=== PATIENT | male | born 1980 | race Caucasian/White ===

== ENCOUNTER → 2018-12-27 14:54 | Outpatient (CLI) | payer OTHER, SELFPAY ==
[2018-12-27 16:10] LABS: Hematocrit 41.8 % (41-53); Hemoglobin 14.6 g/dL (13.5-17.5); Mean Corpuscular HGB Conc 34.9 % (30-36); Mean Corpuscular Hemoglobin 31.2 PG (26-34); Mean Corpuscular Volume 89.4 fL (80-100); Platelet Count 198 X10^3/uL (150-400); Red Blood Cell Count 4.68 X10^6/uL (4.5-5.9); Red Cell Distribution Width 12.6 % (11.6-14.8)
[2018-12-27 16:32] LABS: Alanine Aminotransferase 57 IU/L (21-72); Albumin 4.7 g/dL (3.5-5.0); Albumin Globulin Ratio 1.4 (1.0-2.8); Alkaline Phosphatase 60 U/L (38-126); Aspartate Aminotransferase 38 IU/L (17-59); BUN Creatinine Ratio 17.5 (6-22); Bilirubin Total 0.7 mg/dL (0.2-1.3); Blood Urea Nitrogen 14 mg/dL (9-20); Calcium 9.2 mg/dL (8.4-10.2); Carbon Dioxide 27 mmol/L (22-32); Chloride 101 mmol/L (98-107); Estimated Glomerular Filt Rate > 60.0 mL/min (>60); Globulin 3.3 g/dL (1.7-4.1); Glucose 91 mg/dL (70-100); HEMOLYSIS < 15 (0-50); Lipase 65 U/L (23-300); Potassium 3.9 mmol/L (3.4-5.1); Sodium 139 mmol/L (137-145)
[2018-12-27 16:40] LABS: Neutrophils Absolute Manual 2880 /uL (3000-5900); Total Cells Counted 100
[2018-12-27 16:41] LABS: RBC Morphology Normal Morphology
== END ==
PROVIDERS: Visit Provider Physician Assistant
DX: R10.9 Unspecified abdominal pain (principal)
CPT/HCPCS: 36415; 80053; 83690; 85025

== ENCOUNTER 2018-12-27 17:26 | Emergency (ER) | payer OTHER, SELFPAY ==
[2018-12-27 18:05] VITALS: BP 139/82; PULSE 85; RESP 14; TEMP 36.8; O2SAT 98
--- NOTE | 2018-12-27 18:19 | DI.CT.S_ITS ---
PROCEDURE: CT ABDOMEN PELVIS W CON INDICATIONS: LUQ pain, severe, sent by [facility] TECHNIQUE: After the administration of intravenous contrast, 5 mm thick sections acquired from the diaphragm to the symphysis. 5 mm coronal and sagittal reformats were acquired. For radiation dose reduction, the following was used: automated exposure control, adjustment of mA and/or kV according to patient size. COMPARISON: None. FINDINGS: Image quality: Excellent. ABDOMEN: Lung bases: Lung bases are clear. Heart size is normal. Solid organs: There is diffuse hepatic steatosis. Gallbladder is unremarkable. Biliary system is non dilated. Pancreas enhances normally. Spleen is normal in size and enhancement. No adrenal nodules. Kidneys demonstrate normal size and enhancement, without hydronephrosis. There is a prominent left extrarenal pelvis versus parapelvic cyst. Peritoneum and bowel: Bowel loops demonstrate normal wall thickness and caliber. No free fluid or air. Normal appendix seen on axial image 57 of series 2. There is a 3.0 cm area of omental fat in the lateral left paracolic gutter demonstrating peripheral fat stranding consistent with edema. There is thickening of the peritoneal lining along the left paracolic bladder and there is mild thickening of the left descending colon. Nodes and vessels: No retroperitoneal or mesenteric adenopathy by size criteria. Aorta and inferior vena cava are normal in size. PELVIS: Genitourinary: Bladder wall thickness is normal. Bones: No suspicious bony lesions. No vertebral body compression fractures. IMPRESSION: 1. Inflammatory findings along the left paracolic gutter including focal inflammation surrounding a 3.0 cm of intraperitoneal fat, most consistent with an intraperitoneal focal fat infarction or epiploic appendigitis. A left descending colitis could appear similar. Consider followup CT to demonstrate resolution of findings after the clinical episode resolves to exclude a colonic or mesenteric lesion. 2. Hepatic steatosis. Findings discussed with referring provider Dr. Trace Hughes by telephone by Dr. Shelton at 8:40 PM on 12/27/18. Dictated by: Louis Shelton M.D. on 12/27/2018 at 20:33 Approved by: Louis Shelton M.D. on 12/27/2018 at 20:43
[2018-12-27 18:25] LABS: Add Manual Diff / Slide Review NO; Basophils Absolute Auto 0 /uL (0-100); Basophils Percent Auto 0.3 % (0-2); Eosinophils Absolute Auto 0 /uL (0-450); Eosinophils Percent Auto 0.7 % (2-4); Hematocrit 43.5 % (41-53); Hemoglobin 14.9 g/dL (13.5-17.5); Lymphocytes Absolute Auto 1700 /uL (1100-4500); Lymphocytes Percent Auto 29.7 % (25-40); Mean Corpuscular HGB Conc 34.2 % (30-36); Mean Corpuscular Volume 90.7 fL (80-100); Monocytes Absolute Auto 800 /uL (0-900); Monocytes Percent Auto 13.6 % (3-14); Neutrophils Absolute Auto 3300 /uL (1500-7000); Neutrophils Percent Auto 55.7 % (50-75); Platelet Count 191 X10^3/uL (150-400); Red Blood Cell Count 4.79 X10^6/uL (4.5-5.9); Red Cell Distribution Width 12.6 % (11.6-14.8); White Blood Cell Count 5.9 X10^3/uL (4.5-11.0)
[2018-12-27 18:36] LABS: Alanine Aminotransferase 51 IU/L (21-72); Albumin 4.6 g/dL (3.5-5.0); Albumin Globulin Ratio 1.4 (1.0-2.8); Alkaline Phosphatase 61 U/L (38-126); Aspartate Aminotransferase 33 IU/L (17-59); BUN Creatinine Ratio 16.3 (6-22); Bilirubin Total 0.6 mg/dL (0.2-1.3); Blood Urea Nitrogen 13 mg/dL (9-20); Calcium 9.2 mg/dL (8.4-10.2); Carbon Dioxide 27 mmol/L (22-32); Chloride 102 mmol/L (98-107); Estimated Glomerular Filt Rate > 60.0 mL/min (>60); Globulin 3.4 g/dL (1.7-4.1); Glucose 97 mg/dL (70-100); HEMOLYSIS < 15 (0-50); Lipase 57 U/L (23-300); Potassium 3.9 mmol/L (3.4-5.1); Sodium 138 mmol/L (137-145)
--- NOTE | 2018-12-27 18:37 | ED_ITS ---
HPI - Abdominal Pain General Chief Complaint: Abdominal Pain Stated Complaint: SENT BY [facility] FOR CT FOR SIDE PAIN Time Seen by Provider: 12/27/18 18:00 Source: patient Mode of arrival: ambulatory Limitations: no limitations History of Present Illness HPI narrative: 38-year-old male nonsmoker with benign medical history presents at the request of the walk-in clinic for evaluation of worsening left upper quadrant pain for the past few days. He denies nausea, vomiting or diarrhea. His pain is worse with palpation and movement. He denies any history of the same. He denies any significant alcohol history and has never had ulcers. MD complaint: abdominal pain Onset (ago): day(s) Pain Consistency: constant Location: LUQ Severity: moderate Quality: cramping and aching Radiation: none Migration to: no migration Relieving factors: nothing Exacerbating factors: nothing Associated symptoms: nausea Related Data Previous Rx's Medication Instructions Recorded hydrocodone-acetaminophen 1 tab PO Q4-6H PRN #10 tab 12/27/18 ondansetron 4 mg PO TID-QID PRN #10 tab 12/27/18 Review of Systems Constitutional Denies chills, Denies fever(s), Denies lethargy and Denies weakness Eyes Denies change in vision, Denies eye discharge, Denies irritation and Denies loss of vision ENT Ears, Nose, Mouth, and Throat: Denies change in voice, Denies neck pain and Denies sore throat Cardiovascular Denies chest pain, Denies irregular heart rhythm, Denies lightheadedness, Denies palpitations, Denies dyspnea, Denies dyspnea on exertion and Denies orthopnea Respiratory Denies cough, Denies dyspnea, Denies dyspnea on exertion and Denies wheezing Gastrointestinal Gastrointestinal: Reports abdominal pain, Denies change in bowel habits, Denies diarrhea, Reports nausea and Denies vomiting Genitourinary Denies hematuria, Denies flank pain, Denies urinary incontinence and Denies urinary urgency Musculoskeletal Denies neck pain Integumentary/Breasts Denies pruritus, Denies erythema, Denies rash and Denies wounds Neurologic Denies confusion, Denies loss of vision and Denies weakness Psychiatric Denies anxiety, Denies confusion, Denies depression, Denies homicidal ideation and Denies suicidal ideation Endocrine Denies palpitations Hematologic/Lymphatic Denies easy bruising Allergic/Immunologic Denies wheezing PFSH Social History Smoking Status: Never smoker Social History Smoking Status: Never smoker Exam Narrative Exam Narrative: GENERAL: 38-year-old male appears stated age, well nourished, seems uncomfortable but in no significant distress HEAD: Atraumatic. Normocephalic. No temporal or scalp tenderness. EYES: Pupils equal round and reactive. Extraocular motions intact. No scleral icterus. No injection or drainage. ENT: Nose without bleeding, purulent drainage or septal hematoma. Throat without erythema, tonsillar hypertrophy or exudate. Uvula midline. Airway patent. NECK: Trachea midline. No JVD or lymphadenopathy. Supple, nontender, no meningeal signs. CARDIOVASCULAR: Regular rate and rhythm without murmurs, gallops, or rubs. RESPIRATORY: Clear to auscultation. Breath sounds equal bilaterally. No wheezes, rales, or rhonchi. GASTROINTESTINAL: Abdomen soft, non-tender, nondistended. No hepato- splenomegaly, or palpable masses. No guarding. EXTREMITIES: No clubbing, cyanosis, or edema. No joint tenderness, effusion, or edema noted. BACK: Nontender without deformity or crepitance. No flank tenderness. NEURO: AOx3. SKIN: No rash or erythema. Initial Vital Signs Initial Vital Signs: Vital Signs Temperature 98.2 F 12/27/18 18:05 Pulse Rate 85 12/27/18 18:05 Respiratory Rate 14 12/27/18 18:05 Blood Pressure 139/82 12/27/18 18:05 Pulse Oximetry 98 12/27/18 18:05 Course Orders Ordered: ED Orders 12/27/18 18:08 Urinalysis and Microscopic Stat 12/27/18 18:17 Complete Blood Count AUTO DIFF Stat Comprehensive Metabolic Panel Stat Lipase Stat 12/27/18 18:19 CT abdomen pelvis w con Stat Consultations Consultation #1: Discussion with on-call general surgeon whom is happy to see the patient in the office on Tuesday, recommends pain meds and antiemetics but no antibiotics at this point in time Vital Signs - 8 hr 12/27/18 21:19 Pulse Rate 65 Respiratory Rate 16 Blood Pressure 124/65 Pulse Oximetry 98 MDM - Abdominal Pain Lab Data Result diagrams: 12/27/18 18:17 12/27/18 18:17 Lab Results 12/27/18 12/27/1812/27/19 Range/Units 18:17 18:17 18:40 WBC 5.9 (4.5-11.0) X10^3/uL RBC 4.79 (4.5-5.9) X10^6/uL Hgb 14.9 (13.5-17.5) g/dL Hct 43.5 (41-53) % MCV 90.7 (80-100) fL MCH 31.0 (26-34) PG MCHC 34.2 (30-36) % RDW 12.6 (11.6-14.8) % Plt Count 191 (150-400) X10^3/uL Neut % (Auto) 55.7 (50-75) % Lymph % (Auto) 29.7 (25-40) % Barber % (Auto) 13.6 (3-14) % Eos % (Auto) 0.7 L (2-4) % Baso % (Auto) 0.3 (0-2) % Neut # (Auto) 3300 (6073-6590) /uL Lymph # (Auto) 1700 (4794-0168) /uL Barber # (Auto) 800 (0-900) /uL Eos # (Auto) 0 (0-450) /uL Baso # (Auto) 0 (0-100) /uL Sodium 138 (137-145) mmol/L Potassium 3.9 (3.4-5.1) mmol/L Chloride 102 (98-107) mmol/L Carbon Dioxide 27 (22-32) mmol/L BUN 13 (9-20) mg/dL Creatinine 0.80 (0.66-1.25) mg/dL Estimated GFR > 60.0 (>60) mL/min BUN/Creatinine Ratio 16.3 (6-22) Glucose 97 (70-100) mg/dL Calcium 9.2 (8.4-10.2) mg/dL Total Bilirubin 0.6 (0.2-1.3) mg/dL AST 33 (17-59) IU/L ALT 51 (21-72) IU/L Alkaline Phosphatase 61 (38-126) U/L Total Protein 8.0 (6.3-8.2) g/dL Albumin 4.6 (3.5-5.0) g/dL Globulin 3.4 (1.7-4.1) g/dL Albumin/Globulin Ratio 1.4 (1.0-2.8) Lipase 57 (23-300) U/L Urine Color Yellow Urine Appearance Clear Urine pH 6.5 (4.5-8.0) Ur Specific [place] 1.025 (1.000-1.035) Urine Protein Negative (Negative) Urine Glucose (UA) Negative (Negative) g/dL Urine Ketones Negative (NEGATIVE) Urine Occult Blood Negative (Negative) Urine Nitrate Negative (Negative) Urine Bilirubin Negative (NEGATIVE) Urine Urobilinogen 0.2 (0.2) E.U./dL Ur Leukocyte Esterase Negative (NEGATIVE) Urine RBC None seen (0-5/HPF) Urine WBC None seen (0-5/HPF) Urine Bacteria None seen (None) Ur Culture Indicated? Cult not indicated Imaging Data CT scan - abdomen: Radiologist's impression: [address] [address] [address] Scan Report Signed Patient: Marcial Chapin JMR#: [id number] : 1980Acct:[id number] Age/Sex: 38 / MDate of Service: 12/27/18 Loc: ED Accession Number: [id number] Procedure: CT abdomen pelvis w con Ordering Provider: Trace Hughes D.O. PROCEDURE: CT ABDOMEN PELVIS W CON INDICATIONS: LUQ pain, severe, sent by [facility] TECHNIQUE: After the administration of intravenous contrast, 5 mm thick sections acquired from the diaphragm to the symphysis. 5 mm coronal and sagittal reformats were acquired. For radiation dose reduction, the following was used: automated exposure control, a djustment of mA and/or kV according to patient size. COMPARISON: None. FINDINGS: Image quality: Excellent. ABDOMEN: Lung bases: Lung bases are clear. Heart size is normal. Solid organs: There is diffuse hepatic steatosis. Gallbladder is unremarkable. Biliary system is non dilated. Pancreas enhances normally. Spleen is normal in size and enhancement. No adrenal nodules. Kidneys demonstrate normal size and enhancement, without hydronephrosis. There is a prominent left extrarenal pelvis versus parapelvic cyst. Peritoneum and bowel: Bowel loops demonstrate normal wall thickness and caliber. No free fluid or air. Normal appendix seen on axial image 57 of series 2. There is a 3.0 cm area of omental fat in the lateral left paracolic gutter demonstrating per ipheral fat stranding consistent with edema. There is thickening of the peritoneal lining along the left paracolic bladder and there is mild thickening of the left descending colon. Nodes and vessels: No retroperitoneal or mesenteric adenopathy by size criteria. Aorta and inferior vena cava are normal in size. PELVIS: Genitourinary: Bladder wall thickness is normal. Bones: No suspicious bony lesions. No vertebral body compression fractures. IMPRESSION: 1. Inflammatory findings along the left paracolic gutter including focal inflammation surrounding a 3.0 cm of intraperitoneal fat, most consistent with an intraperitoneal focal fat infarction or epiploic appendigitis. A left descending colitis could appear similar. Consider followup CT to demonstrate resolution of findings after the clinical episode resolves to exclude a colonic or mesenteric lesion. 2. Hepatic steatosis. Findings discussed with referring provider Dr. Trace Hughes by telephone by Dr. Shelton at 8:40 PM on 12/27/18. Dictated by: Louis Shelton M.D. on 12/27/2018 at 20:33 Approved by: Louis Shelton M.D. on 12/27/2018 at 20:43 Discharge Plan Departure Patient Disposition: Home Clinical Impression: Epiploic appendagitis Discharge Date/Time: 12/27/18 21:19 Interventions: ED Discharge Assessment Last Done: 12/27/18 21:19 Instructions: DI for Abdominal Pain-Adult Activity Restrictions/Additional Instructions: *You have been diagnosed with [ acute epiploic appendagitis ] *What to do: *Follow up with Dr. Michelle at [facility], call for an appointment. Let them know you were seen in the Emergency Department and that he wants to see you on Tuesday *Return to ER if you should have any new, worsening or concerning symptoms Prescriptions: New hydrocodone-acetaminophen 5-325 mg tablet 1 tab PO Q4-6H PRN (Reason: pain) Qty: 10 RF: 0 ondansetron 4 mg tablet,disintegrating 4 mg PO TID-QID PRN (Reason: nausea and vomiting) Qty: 10 RF: 0 Referrals: Blade Michele MD [Primary Care Provider] - Jero Michelle MD [Physician] -
[2018-12-27 19:08] LABS: Bacteria Urine None Seen; RBC Urine None Seen (0-5/HPF); WBC Urine None Seen (0-5/HPF)
[2018-12-27 19:09] LABS: Appearance Urine UA CLEAR; Bilirubin Urine UA NEGATIVE (NEGATIVE); Color Urine UA YELLOW; Glucose Urine UA NEGATIVE (Negative); Ketones Urine UA NEGATIVE (NEGATIVE); Leukocyte Esterase Urine UA NEGATIVE (NEGATIVE); Nitrite Urine UA NEGATIVE (Negative); Occult Blood Urine UA NEGATIVE (Negative); Protein Urine UA NEGATIVE (Negative); Specific Gravity Urine UA 1.025 (1.000-1.035); Urobilinogen Urine UA 0.2 E.U./dL (0.2); pH Urine UA 6.5 (4.5-8.0)
[2018-12-27 19:15] LABS: Culture Indicated Urine Cult Not Indicated
[2018-12-27 21:19] VITALS: BP 124/65; PULSE 65; RESP 16; O2SAT 98
== END 2018-12-27 21:19 | disposition home or self-care (01) ==
PROVIDERS: Emergency Provider Emergency Medicine; Family Provider Family Medicine; PCP Family Medicine
DX: K63.89 Other specified diseases of intestine (principal); R10.9 Unspecified abdominal pain
CPT/HCPCS: 36415; 74177; 80053; 81001; 83690; 85025; 99282; 99284; Q9967